=== PATIENT | male | born 1980 | race Caucasian/White ===

== ENCOUNTER → 2017-08-16 | Outpatient (CLI) | payer BC ==
[~2017-08-16] MED LIST: AMLODIPINE BESYL5 MG PO; IOPAMIDOL 370 MG/ML 200 ML INFUS..BTL INJ ONE; SODIUM CHLORIDE 0.9% 50ML 50 ML ONE; XANAX1 MG PO
--- NOTE | 2017-08-16 19:11 | Diagnostic Imaging Report ---
PROCEDURE: CT ABDOMEN AND PELVIS WITH CONTRAST TECHNIQUE: The abdomen and pelvis were scanned utilizing a multidetector helical scanner from the diaphragm to the lesser trochanter after the IV administration of 100 cc of Isovue 370 and the oral administration of water. Coronal and sagittal multiplanar reformations were obtained. COMPARISON: None. INDICATIONS: LOWER ABDOMINAL PAIN, BLOOD IN STOOL FINDINGS: LOWER THORAX: Linear opacity in the right lower lobe, likely represent subsegmental atelectasis or scarring. Lung bases are otherwise clear. HEPATOBILIARY: Normal hepatic size and contour. Diffusely decreased attenuation of the hepatic parenchyma, consistent with steatosis. 5 mm hypodense lesion in hepatic segment VIII (series 2, image 10), which is a small to characterize, but likely represents a small cyst. No other focal hepatic lesions. No biliary ductal dilation. Gallbladder is nondistended, but grossly unremarkable.. SPLEEN: No splenomegaly. PANCREAS: No focal masses or ductal dilatation. ADRENALS: No adrenal nodules. KIDNEYS/URETERS: No hydronephrosis, stones, or solid mass lesions. PELVIC ORGANS/BLADDER: Bladder and prostate are unremarkable. PERITONEUM / RETROPERITONEUM: No free air or fluid. LYMPH NODES: No lymphadenopathy. VESSELS: Celiac trunk, superior and inferior mesenteric, and bilateral renal arteries are patent. Portal, superior mesenteric, and splenic veins are patent. GI TRACT: No bowel dilation or evidence of obstruction. Appendix is well identified and normal in caliber. No pericolonic inflammatory changes. Stomach is unremarkable. BONES AND SOFT TISSUES: No aggressive lytic lesion. Small fat-containing umbilical hernia. IMPRESSION: 1. no acute abdominopelvic abnormalities. Unremarkable appearance of the bowel. 2. Diffuse hepatic steatosis. Margarito Vogel M.D. Dictated by: Margarito Vogel M.D. on 08/16/2017 at 19:15 Electronically approved by: Margarito Vogel M.D. on 08/16/2017 at 19:15
== END ==
LOC: CT 16:45
PROVIDERS: ATTEND Internal Medicine Gastroenterology
DX: R10.9 Unspecified abdominal pain (principal)
CPT/HCPCS: 74177; Q9967

== ENCOUNTER → 2017-08-22 | Day surgery (SDC) | payer BC ==
[~2017-08-22] MED LIST changes: +FENTANYL CITRATE/PF 100MCG/2 ML INJ ONE; -IOPAMIDOL 370 MG/ML 200 ML INFUS..BTL INJ ONE; +KETAMINE HCL INJ 50 MG/ML 10 ML VIAL ONE; +MIDAZOLAM HCL 2 MG/2 ML VIAL ONE; +MIDAZOLAM HCL 5MG/ML 2ML VIAL ONE; +PANTOPRAZOLE 40 MG 10ML VIAL ONE; +PROPOFOL IV EMULSION 10 MG/ML 20 ML VIAL ONE; -SODIUM CHLORIDE 0.9% 50ML 50 ML ONE
[2017-08-22 16:49] LABS: WBC,FECAL (FECAL LACTOFERRIN) NEGATIVE (NEGATIVE)
--- NOTE | 2017-08-22 17:11 | Operative Report ---
DATE OF PROCEDURE: August 22, 2017 REFERRING PHYSICIAN: Dr. Andrés Sheppard. PROCEDURE PERFORMED: 1. Esophagogastroduodenoscopy with biopsies. 2. Colonoscopy with polypectomy and biopsies. INDICATIONS FOR ESOPHAGOGASTRODUODENOSCOPY: History of melena, bloating. INDICATIONS FOR COLONOSCOPY: Lower abdominal pain, bloody diarrhea. MEDICATION: Patient was done under MAC. Please see anesthesiologist's note. PROCEDURE: With the patient in the left lateral decubitus position, the flexible fiberoptic Olympus gastroscope was introduced into the esophagus under direct visualization without any difficulty. There were some erosions noted in the distal esophagus. Also, there were some tongues of velvety red mucosa extending proximally from the GE junction, and biopsies were obtained to rule out Villanueva's. The scope was then advanced with ease into the stomach, traversing a small hiatal hernia. Mucosa overlying the antrum and the body revealed some diffuse erythema and mild to moderate edema, and biopsies were obtained and sent to stain for H. pylori. Pylorus appeared to be of normal contour and shape, was intubated with ease, and the scope was advanced all the way to the 2nd portion of the duodenum. Biopsies were obtained from the proximal 2nd portion to rule out sprue considering patient's history of diarrhea. The scope was withdrawn slowly. Mucosa overlying the duodenal bulb appeared to be within normal limits. The scope was then withdrawn back into the stomach and retroflexed, and the mucosa overlying the fundus and the cardia appeared to be within normal limits. The scope was then straightened out. The stomach was decompressed. The scope was subsequently withdrawn. Patient tolerated procedure well. IMPRESSION: 1. Distal erosive esophagitis. 2. Rule out Villanueva's esophagus. 3. Small hiatal hernia. 4. Gastritis, biopsied. Biopsies sent to stain for H. pylori. 5. Rule out sprue. PLAN: Follow up histology. Initiate Protonix 40 mg 1 p.o. q.a.m. a.c. Patient was then turned around and after adequate lubrication of the anal canal, a flexible fiberoptic Olympus colonoscope was inserted into the rectum with ease and advanced all the way to the cecum. Mucosa overlying the cecum appeared to be within normal limits. The ileocecal valve was intubated, and the scope was advanced into the terminal ileum. Biopsies were obtained. The scope was then withdrawn back into the colon. It was then withdrawn slowly. Mucosa overlying the ascending and the transverse overall grossly appeared to be within normal limits. The mucosa overlying the left colon revealed some patchy areas of intense erythema and low-grade to moderate edema, and there were some scattered aphthous-like ulcers noted in the sigmoid colon. Random biopsies were obtained. Approximately a 1 cm polyp was snared from the rectum. The scope was then retroflexed into the distal rectum and small internal hemorrhoids were noted, none of which was actively bleeding. The scope was then straightened out. It was subsequently withdrawn after securing an adequate stool specimen that was sent for the appropriate stool studies. Patient tolerated the procedure well. IMPRESSION: 1. Colitis, patchy, left-sided. 2. Rectal polyp snared. 3. Proctitis. 4. Internal hemorrhoids, none actively bleeding. PLAN: Follow up histology. Follow up stool studies. Initiate VSL#3 one p.o. daily and Bentyl 10 mg one p.o. t.i.d. Check IBD panel, CRP and sed rate. Timing of followup colonoscopy pending pathology report. Job#: [id number] EV
[2017-08-23 12:58] LABS: C DIFFICILE TOXIN A&B AMP PROB **POSITIVE** (NEGATIVE)
== END | disposition home or self-care (01) ==
LOC: OR 12:37
PROVIDERS: ATTEND Internal Medicine Gastroenterology
DX: K29.70 Gastritis, unspecified, without bleeding (principal); D12.8 Benign neoplasm of rectum; K22.10 Ulcer of esophagus without bleeding; K51.50 Left sided colitis without complications; K44.9 Diaphragmatic hernia without obstruction or gangrene; K62.89 Other specified diseases of anus and rectum; K64.8 Other hemorrhoids; I10 Essential (primary) hypertension; G47.33 Obstructive sleep apnea (adult) (pediatric); R63.5 Abnormal weight gain; F41.9 Anxiety disorder, unspecified; Z01.810 Encounter for preprocedural cardiovascular examination; Z68.30 Body mass index [BMI] 30.0-30.9, adult; Z87.891 Personal history of nicotine dependence; Z80.0 Family history of malignant neoplasm of digestive organs
CPT/HCPCS: 36415; 43239; 45380; 45385; 83630; 83993; 85651; 86140; 86256; 86671; 87045; 87177; 87328; 87493; 93005; J2250 ×2

== ENCOUNTER 2018-09-08 09:49 | Emergency (ER) | payer BC ==
[~2018-09-08] VITALS: Ht 182.9 cm; Wt 104.3 kg
[~2018-09-08 09:49] MED LIST changes: -FENTANYL CITRATE/PF 100MCG/2 ML INJ ONE; -KETAMINE HCL INJ 50 MG/ML 10 ML VIAL ONE; -MIDAZOLAM HCL 2 MG/2 ML VIAL ONE; -MIDAZOLAM HCL 5MG/ML 2ML VIAL ONE; -PANTOPRAZOLE 40 MG 10ML VIAL ONE; -PROPOFOL IV EMULSION 10 MG/ML 20 ML VIAL ONE
--- OUTSIDE RECORDS SUMMARY | 2018-09-08 09:54 | XMS REPORT | Encounter Summary ---
Author Organization Unknown Address [address] [place] [id number] Phone [phone] Care Team Providers Care Mineral Mixer Name Role Phone Andrés Sheppard MD 3 [phone] Reason for Visit Medical Complaint Instructions 1. Gastroenteritis gastroenteritis: care instructions ondansetron 8 mg disintegrating tablet 2. Earache symptoms earache: care instructions fwjvtaol-ieqqcfaui-jjninuvkg 3.5 mg-10,000 unit/mL-1 % ear drops,susp 3. Acute upper respiratory infection rapid flu (A+B) rapid strep group A, throat upper respiratory infection (cold): care instructions benzonatate 200 mg capsule 4. Essential hypertension high blood pressure: care instructions learning about high blood pressure 5. Body mass index 30+ - obesity body mass index: care instructions learning about healthy weight Discussion Note: None recorded. Plan of Care Patient Instructions USE ear drop as prescribed Use over the counter medication as directed such as Immodium (for diarrhea) and PeptoBismol (for upset stomach) use zofran as needed for nausea/vomitting Take in small sips of water/gatorade/powerade/juice with increasing frequency, then add bland foods such as bananas, rice, toast, grits, then slowly add other foods. continue taking over the counter cough and cold medication if cough and congestion worsens and/or disrupts sleep, then take tessalon kendrick with full glass of water. Seek care if symptoms worsen, such as increasing fever, abdominal pain, and intolerance to food/liquids. Reminders Provider Appointments None recorded. Lab Rapid Flu (A+B) 04/15/2018 [facility] Rapid Strep Group a, Throat 04/15/2018 [facility] Referral None recorded. Procedures None recorded. Surgeries None recorded. Imaging None recorded. Medications Name Start Date amlodipine 5 mg tablet benzonatate 200 mg capsule Take 1 capsule 3 times a day by oral route as needed. czhdtemv-xesxuncjh-wmhlubcsf 3.5 mg-10,000 unit/mL-1 % ear drops,susp INSTILL 4 DROPS INTO AFFECTED EAR(S) BY OTIC ROUTE 3 TIMES PER DAY*7 days ondansetron [address] 1 tablet every 8 hours by translingual route as needed for 2 days. Medications Administered None recorded. Vitals Height Weight BMI Blood Pressure 6 ft 230 lbs 31.2 kg/m2 122/80 mm[Hg] Lab Results Date Name Specimen Result Interpretation Description Value Range Status Address Rapid Strep Group a, Throat Result negative [facility]: [address] [place] [address] Swab Location Left and Right tonsillar pillars [facility]: [address] [place] [address] Rapid Flu (A+B) Influenza a negative [facility]: [address] [place] [address] Influenza B negative [facility]: [address] [place] [address] Allergies Code Code System Name Reaction Severity Status Onset NKDA Problems No Known Problems Procedures None recorded. Vaccine List Vaccine Type influenza, injectable, quadrivalent 12/26/2017 Tdap 02/26/2016 Social History Smoking Status Never Smoker Past Encounters 04/15/2018 Gastroenteritis; Earache Symptoms; Acute Upper Respiratory Infection; Essential Hypertension; Body Mass Index 30+ - Obesity [facility] [address] [address], Ph. History of Present Illness Vmxgq-Soeiutoinn-Dfexoad Reported By: Patient HPI: Location: throat. Quality: productive cough, sore throat, nasal/sinus congestion. Duration: 5days. Severity: mild, pain level 5/10. Onset/Timing: gradual. Context: no foreign travel, non-smoker, sick contact. Modifying factors: OTC medication. Associated Symptoms: no sputum production, no wheezing, no sweats, no morning cough, no rash, fatigue, sore throat, vomiting, diarrhea, nausea, fever, muscle aches, headache Review of Systems Basic Reported By: Patient Constitutional: Constitutional: no fever Eyes: Eyes: no eye complaints Kcfs-Tjmm-Lkxtc-Throat: Ears: ear pain Skin: Skin: no abnormal / changing mole, no jaundice, no rashes Neurologic: Neurologic: no loss of consciousness, no weakness, no numbness, no seizures, no dizziness, no headaches Physical Exam Adult Basic, Adult Male Complete Reported By: Patient Constitutional: General Appearance: healthy-appearing, well-nourished, well-developed. Level of Distress: NAD. Ambulation: ambulating normally Psychiatric: Mental Status: active and alert. Orientation: to time, to place, to person Tma-Vrpw-Vztdw-Throat: Ears: no lesions on external ear, no outer ear tenderness, EACs clear, TMs clear, TM mobility normal. Hearing: no hearing loss. Nose: no lesions on external nose, nares patent, no septal deviation, nasal passages clear, no sinus tenderness, nasal discharge--rhinorrhea. Lips, Teeth, and Gums: no mouth or lip ulcers, no bleeding gums, normal dentition. Oropharynx: moist mucous membranes, no erythema, no exudates Neck: Lymph Nodes: no cervical LAD Lungs: Respiratory effort: no dyspnea, no tachypnea, no use of accessory muscles. Auscultation: breath sounds normal, good air movement Cardiovascular: Heart Auscultation: RRR, no murmurs Neurologic: Gait and Station: normal gait, normal station Abdomen: Bowel Sounds: normal. Inspection and Palpation: soft, no tenderness, no guarding, no rebound tenderness, no masses, no CVA tenderness. Hernia: none palpable
--- OUTSIDE RECORDS SUMMARY | 2018-09-08 09:54 | XMS REPORT | Continuity of Care Document ---
Author Author [address] Address Unknown Phone Unavailable Care Team Providers Care Volunteer Fire Fighter Name Role Phone MOBi-LEARN Unavailable Unavailable Problems Problem Status Onset Date Classification Date Reported Comments Source Gastroenteritis 09/02/2018 Diagnosis 09/02/2018 [facility] Acute upper respiratory infection 04/15/2018 Diagnosis 04/15/2018 [facility] Earache symptoms 04/15/2018 Diagnosis 04/15/2018 [facility] Body mass index 30+ - obesity 04/15/2018 Diagnosis 04/15/2018 [facility] Essential hypertension 04/15/2018 Diagnosis 04/15/2018 [facility] Medications Medication Details Route Status Patient Instructions Ordering Provider Order Date Source Amlodipine 5 MG Oral Tablet amlodipine 5 mg tablet TK 1 T PO D Active [facility] benzonatate 200 MG Oral Capsule benzonatate 200 mg capsule Take 1 capsule 3 times a day by oral route as needed. Active [facility] Hydrocortisone 10 MG/ML / Neomycin 3.5 MG/ML / Polymyxin B 69506 UNT/ML Otic Suspension hmxalfit-zramvckfc-zonfeyzsq 3.5 mg-10,000 unit/mL-1 % ear drops,susp INSTILL 4 DROPS INTO AFFECTED EAR(S) BY OTIC ROUTE 3 TIMES PER DAY*7 days Active [facility] Ondansetron 8 MG Disintegrating Oral Tablet ondansetron [address] 1 tablet every 8 hours by translingual route as needed for 2 days. Active [facility] Clonazepam 2 MG Oral Tablet clonazepam 2 mg tablet Active [facility] Zolpidem tartrate 12.5 MG Extended Release Oral Tablet zolpidem ER 12.5 mg tablet,extended release,multiphase TK 1 T PO QHS Active [facility] Allergies, Adverse Reactions, Alerts No Known Medication Allergies Immunizations Immunization Date Given Site Status Last Updated Comments Source influenza, injectable, quadrivalent 12/26/2017 completed [facility] Tdap 02/26/2016 completed [facility] Results Order Name Results Value Reference Range Date Interpretation Comments Source RESULT negative 04/15/2018 [facility] SWAB LOCATION Left and Right tonsillar pillars 04/15/2018 [facility] Influenza A negative 04/15/2018 [facility] Influenza B negative 04/15/2018 [facility] Pathology Reports No Data Provided for This Section Diagnostic Reports No Data Provided for This Section Consultation Notes No Data Provided for This Section Discharge Summaries No Data Provided for This Section History and Physicals No Data Provided for This Section Vital Signs Vital Sign Value Date Comments Source Diastolic (mm Hg) 80 09/02/2018 [facility] Height 72 09/02/2018 [facility] Systolic (mm Hg) 124 09/02/2018 [facility] Weight 230 09/02/2018 [facility] Diastolic (mm Hg) 80 04/15/2018 [facility] Height 72 04/15/2018 [facility] Systolic (mm Hg) 122 04/15/2018 [facility] Weight 230 04/15/2018 [facility] Encounters Location Location Details Encounter Type Encounter Number Reason For Visit Attending Provider ADM Date DC Date Status Source [place] - [facility] - [id number] YOHAN NiñoP-BC: [address] [place] [address], Ph. [id number] Naresh Green 04/15/2018 [facility] [place] - [facility] [id number] Tianna Louise, COMMERCIAL OCE[employer] CLAMMER: [address] [place] [address], Ph. [phone] [id number] Tianna Louise 09/02/2018 [facility] Procedures No Data Provided for This Section Assessment and Plan No Data Provided for This Section Plan of Care No Data Provided for This Section Social History Social History Date Source Smoking Status Never Smoker 04/15/2018 [facility] Family History No Data Provided for This Section Advance Directives No Data Provided for This Section Functional Status No Data Provided for This Section
--- OUTSIDE RECORDS SUMMARY | 2018-09-08 09:55 | XMS REPORT | Encounter Summary ---
Author Organization Unknown Address [address] [place] [address] Phone [phone] Care Team Providers Care Fountain Supervisor Name Role Phone Andrés Sheppard MD 3 [phone] Reason for Visit Medical Complaint Instructions 1. Gastroenteritis ondansetron 8 mg disintegrating tablet Discussion Note Diarrhea Use OTC (over the counter) or prescribed medications as directed Only use Imodium OTC if recommended- do not use if you have bloody diarrhea, high fever, or other signs of illness Eat a bland diet, including rice, bananas, apples, toast Take a daily probiotic or eat a daily yogurt with live cultures If diarrhea is occurring, slowly reintroduce liquids by taking small, frequent sips of water until no diarrhea occurs for 1-3 hours. Then, reintroduce solids by taking small bites of bland food. Avoid spicy foods, alcohol, and caffeine until 48 hours after symptoms are gone. If symptoms worsen or do not improve, or rash, abdominal pain, vomiting, continued diarrhea, dizziness, excessive thirst, dark or decreasing amounts of urine, loss of consciousness, or other concerning symptoms develop, seek medical attention If you have any need to contact [facility], including questions or concerns, please contact or Patient educational handouts: No information available. Plan of Care Reminders Provider Appointments None recorded. Lab None recorded. Referral None recorded. Procedures None recorded. Surgeries None recorded. Imaging None recorded. Medications Name Start Date amlodipine 5 mg tablet TK 1 T PO D clonazepam 2 mg tablet ondansetron [address] 1 tablet every 8 hours by translingual route as needed for 2 days. zolpidem ER 12.5 mg tablet,extended release,multiphase TK 1 T PO QHS Medications Administered None recorded. Vitals Height Weight BMI Blood Pressure 6 ft 230 lbs 31.2 kg/m2 124/80 mm[Hg] Lab Results None recorded. Allergies Code Code System Name Reaction Severity Status Onset NKDA Problems No Known Problems Procedures None recorded. Vaccine List Vaccine Type influenza, injectable, quadrivalent 12/26/2017 Tdap 02/26/2016 Social History Smoking Status Never Smoker Past Encounters 09/02/2018 Gastroenteritis Tianna Louise, PRODUCTION SUPPORT SPECIALIST: [address] [address], Ph. History of Present Illness Ogvqqd-Kpbrupqa-Dadaxdns / Abdominal Pain Reported By: Patient HPI: Quality: improving, watery, soft, loose, intermittent. Severity: moderate. Duration: present for < 1 week. Onset/Timing: no nocturnal symptoms, started after an event, starting upon awakening for the day. Context: no one else with similar symptoms, no recent camping, no recent picnic, no possible food sources, no recent travel, last bowel movement:. Alleviating factors: OTC medication. Associated Symptoms: no abdominal pain, no excess gas, no rash, no joint pain, no weight loss, no vomiting, no heartburn, no blood in stool, no mucus in stool, no black or tarry stools, no weakness, no nutrient deficiency, no feeling of fullness/mass in throat, no bitter taste in the mouth, no difficulty swallowing (dysphagia), fever/chills, nausea, cramping, bloating, muscle aches, headache Review of Systems:ROS as noted in the HPI Review of Systems Basic Reported By: Patient Physical Exam Adult Basic, Adult Male Complete Reported By: Patient Constitutional: General Appearance: healthy-appearing, well-nourished, well-developed. Level of Distress: NAD. Ambulation: ambulating normally Psychiatric: Mental Status: active and alert. Orientation: to time, to place, to person Eyes: Lids and Conjunctivae: non-injected, no discharge, no pallor. Pupils: PERRLA Bbi-Zdqt-Uwupa-Throat: Ears: no lesions on external ear, no outer ear tenderness, EACs clear, TMs clear, TM mobility normal. Nose: no lesions on external nose, nares patent, no septal deviation, nasal passages clear, no sinus tenderness, no nasal discharge. Lips, Teeth, and Gums: no mouth or lip ulcers, no bleeding gums, normal dentition. Oropharynx: moist mucous membranes, no erythema, no exudates, tonsils not enlarged Neck: Neck: supple, trachea midline, no masses, FROM. Lymph Nodes: no cervical LAD, no supraclavicular LAD. Thyroid: no enlargement, non-tender, no nodules Lungs: Respiratory effort: no dyspnea, no tachypnea, no use of accessory muscles, no intercostal retractions. Auscultation: breath sounds normal, good air movement Cardiovascular: Heart Auscultation: RRR, no murmurs Abdomen: Bowel Sounds: normal. Inspection and Palpation: soft, no tenderness, no guarding, no rebound tenderness, no masses, no CVA tenderness
[2018-09-08] MEDS ORDERED: SODIUM CHLORIDE 0.9% 1000ML 1,000 ML IV SCH (10:00)
[2018-09-08 10:24] LABS: BASOPHILS # (AUTO) 0.1 (0.0-0.1); BASOPHILS % 0.8 % (0.0-1.0); EOSINOPHILS # (AUTO) 0.1 (0.0-0.4); EOSINOPHILS % 0.6 % (0.0-6.0); HEMATOCRIT 47.3 % (38.2-49.6); HEMOGLOBIN 16.3 g/dL (14.0-18.0); LYMPHOCYTES # (AUTO) 1.8 (1.0-3.2); LYMPHOCYTES % 23.7 % (18.0-39.1); MEAN CORPUSCULAR HEMOGLOBIN 32.5 pg (28-32); MEAN CORPUSCULAR HGB CONC 34.5 g/dL (31-35); MEAN CORPUSCULAR VOLUME 94.4 fL (81-99); MONOCYTES # (AUTO) 0.8 (0.2-0.8); MONOCYTES % 10.3 % (4.4-11.3); NEUTROPHILS % 63.7 % (38.7-80.0); PLATELET COUNT 250 x10e3/uL (140-360); RED BLOOD COUNT 5.01 x10e6/uL (4.3-5.7); RED CELL DISTRIBUTION WIDTH 11.7 % (11.7-14.4)
[2018-09-08] MEDS ORDERED: ONDANSETRON HCL INJ 2MG/ML 2ML 2 MG/ML VIAL IV ONE (10:30)
[2018-09-08] MEDS ORDERED: KETOROLAC TROMETHAMINE 30 MG/ML VIAL IV ONE (10:30)
[2018-09-08 10:47] LABS: ALBUMIN 4.3 g/dL (3.5-5.0); ALBUMIN/GLOBULIN RATIO 1.2 (0.8-2.0); ANION GAP 16.3 mmol/L (8-16); CREATININE, SERUM 1.33 mg/dL (0.72-1.25); POTASSIUM 4.3 mmol/L (3.5-5.1)
[2018-09-08] MEDS ORDERED: CIPRO500 MG PO (11:26)
[2018-09-08] MEDS ORDERED: FLAGYL500 MG PO (11:26)
[2018-09-08 12:28] VITALS: BP 120/83
== END 2018-09-08 12:41 | disposition home or self-care (01) ==
LOC: ER 09:49
DX: R10.84 Generalized abdominal pain (principal); R11.0 Nausea; K58.0 Irritable bowel syndrome with diarrhea; I10 Essential (primary) hypertension; F41.9 Anxiety disorder, unspecified
CPT/HCPCS: 36415; 80053; 83690; 85025; 99284; J1885; J2405; J7030